=== PATIENT | female | born 1980 ===

== ENCOUNTER 2017-12-16 00:15 | Emergency (ER) | payer OTHER ==
[2017-12-16 00:31] VITALS: RESP 18; TEMP 98.1; BMI 30.2
[2017-12-16] MEDS ORDERED: Sodium Chloride 0.9% 1,000 ML IV STA (00:51)
--- NOTE | 2017-12-16 00:57 | ED PDOC ---
Arrival/HPI <Josh Vaca - Last Filed: 12/16/17 05:36> - General Historian: Patient - History of Present Illness Time/Duration: Other (48 hours) Symptom Onset: Gradual Symptom Course: Worsening Quality: Pressure, Cramping Severity Level: 7 Activities at Onset: Rest Context: Home <Wayne Crandall - Last Filed: 12/16/17 05:44> - General Chief Complaint: Female Genitourinary Time Seen by Provider: 12/16/17 00:24 - History of Present Illness Narrative History of Present Illness (Text): 12/16/17 00:54 CC: Pelvic Pain HPI: Ms. Salgado is a 37 year old female with a PMHx of endometriosis, hysterectomy, anemia who presents with a 2 day history of pelvic pain. Patient describes pressure on cervix that radiates up to umbilicus and to lower back as well. Patient describes the pain as crampy with sharp radiation and rates the pain as 8/10. Patient reports that despite her hysterectomy and no period for two years, patient noticed light spotting on her underwear a few days ago. Patient did report unprotected sexual activity a few days ago with no dysparuenia. Patient reports increased frequency of urination but denies hematuria, dysuria and hesitancy. Patient reports abdominal bloating and a rigid stomach. Patient denies fevers, chills, headaches, chest pain, shortness of breath, dizziness, sick contacts and changes to bowel habits. (Wayne Crandall) Past Medical History - Provider Review Nursing Documentation Reviewed: Yes - Travel History Have you recently traveled outside [place] w/in the past 3 mons?: No - Infectious Disease Hx of Infectious Diseases: None - Genitourinary/Gynecological Other/Comment: Endometriosis. partial Hysterectomy - Psychiatric Hx Substance Use: No - Surgical History Hx Hysterectomy: Yes - Anesthesia Hx Anesthesia: Yes Hx Anesthesia Reactions: No Hx Malignant Hyperthermia: No <Wayne Crandall - Last Filed: 12/16/17 05:44> Family/Social History - Physician Review Nursing Documentation Reviewed: Yes Family/Social History: Unknown Family HX Smoking Status: Never Smoked Hx Alcohol Use: No Hx Substance Use: No <Wayne Crandall - Last Filed: 12/16/17 05:44> Allergies/Home Meds <Josh Vaca - Last Filed: 12/16/17 05:36> <Wayne Crandall - Last Filed: 12/16/17 05:44> Allergies/Adverse Reactions: Allergies metronidazole [From Metrogel] Allergy (Verified 12/16/17 00:37) RASH shellfish derived Adverse Reaction (Verified 12/16/17 00:36) ANAPHYLAXIS Review of Systems - Physician Review All systems were reviewed & negative as marked: Yes - Review of Systems Constitutional: Normal. absent: Fatigue, Weight Change, Fevers, Night Sweats Eyes: Normal ENT: Normal Respiratory: Normal Cardiovascular: Normal Gastrointestinal: Abdominal Pain Genitourinary Female: Frequency, Vaginal Bleeding (light). absent: Hematuria, Urine Output Changes Musculoskeletal: Back Pain (radiation from pelvis around to midline sacrum ) Skin: Normal Neurological: absent: Headache <Wayne Crandall - Last Filed: 12/16/17 05:44> Physical Exam Vital Signs Reviewed: Yes Temperature: Afebrile Blood Pressure: Normal Pulse: Regular Respiratory Rate: Normal Appearance: Positive for: Well-Appearing, Non-Toxic, Comfortable Pain Distress: Mild Mental Status: Positive for: Alert and Oriented X 3 - Systems Exam Head: Present: Atraumatic, Normocephalic Pupils: Present: PERRL Extroacular Muscles: Present: EOMI Conjunctiva: Present: Normal Mouth: Present: Moist Mucous Membranes Neck: Present: Normal Range of Motion Respiratory/Chest: Present: Clear to Auscultation, Good Air Exchange. No: Respiratory Distress, Accessory Muscle Use, Wheezes, Decreased Breath Sounds Cardiovascular: Present: Regular Rate and Rhythm, Normal S1, S2. No: Murmurs Abdomen: Present: Tenderness, Normal Bowel Sounds (RLQ), Scars (healed, inferior to umbilicus for endometrial mass removal). No: Distention, Peritoneal Signs, Rebound, Guarding, Rovsing's Sign Present Genitourinary/Pelvic Exam: Present: Normal External Genitalia, Vaginal Discharge , Cervical os Closed, Other (scant white material, no pain on exam). No: Vaginal Bleeding, Vaginal Lesions, Adenexal Tenderness, Adenexal Mass, Cervical Motion Tendernes, Odor Back: Present: Midline Tenderness. No: CVA Tenderness, Paraspinal Tenderness Upper Extremity: Present: Normal Inspection Lower Extremity: Present: Normal Inspection. No: CALF TENDERNESS, NORMAL PULSES Neurological: Present: GCS=15, CN II-XII Intact, Speech Normal Skin: Present: Warm, Dry, Normal Color. No: Rashes Psychiatric: Present: Alert, Oriented x 3, Normal Insight, Normal Concentration <Wayne Crandall - Last Filed: 12/16/17 05:44> Vital Signs Temp Pulse Resp BP Pulse Ox 12/16/17 00:31 98.1 F 75 18 131/87 98 Medical Decision Making <Josh Vaca - Last Filed: 12/16/17 05:36> <Wayne Crandall - Last Filed: 12/16/17 05:44> ED Course and Treatment: 12/16/17 01:36 Patient Seen with Resident: In agreement with resident note which contains more details about the patient. Patient seen and evaluated with resident. Came up with plan and treatment together.. (Josh Vaca) 12/16/17 00:39 Impression: 37 year old female with PMHx of endometriosis with growth removal, hysterectomy , gastric sleeve and anemia who presents with pelvic pain that radiated to umbilicus and to back. Plan: Test POC CBC CMP NS bolus Toradol [address] abd/pel with IV contrast only UA 12/16/17 01:55 Pelvic exam performed with Darnell TIRADO at bedside. Minimal thin white material appreciated. Awaiting CT results. 12/16/17 03:03 EXAM: CT Abdomen and Pelvis Without Intravenous Contrast EXAM DATE/TIME: 12/16/2017 12:50 AM CLINICAL HISTORY: 37 years old, female; Pain; Abdominal pain TECHNIQUE: Axial computed tomography images of the abdomen and pelvis without intravenous contrast. All CT scans at this facility use at least one of these dose optimization techniques: automated exposure control; mA and/or kV adjustment per patient size (includes targeted exams where dose is matched to clinical indication); or iterative reconstruction. COMPARISON: No relevant prior studies available. FINDINGS: Lower thorax: No acute findings. ABDOMEN: Liver: Normal. No mass. Gallbladder and bile ducts: Normal. No calcified stones. No ductal dilation. Pancreas: Normal. No ductal dilation. Spleen: Normal. No splenomegaly. Adrenals: Normal. No mass. Kidneys and ureters: Normal. No hydronephrosis. Stomach and bowel: Normal. No obstruction. No mucosal thickening. Appendix: Visualized portions of appendix appear normal. PELVIS: Bladder: Unremarkable as visualized. Reproductive: Uterus appears within normal limits. Small cysts suspected in bilateral ovaries. Ovoid 5 cm cystic structure in right pelvis-ovary with layering hyperdensity. Suspected bilateral adnexal clips. ABDOMEN and PELVIS: Intraperitoneal space: Mild pelvic free fluid. Bones/joints: No acute fracture. No dislocation. Soft tissues: Ovoid 3 cm fat containing midline abdominal wall subxiphoid hernia. Vasculature: Normal. No abdominal aortic aneurysm. Lymph nodes: Normal. No enlarged lymph nodes. IMPRESSION: 1. Mild pelvic free fluid. 2. Suspected 5 cm right ovarian cyst with layering debris, hemorrhage versus soft tissue. Follow-up recommended. 3. Ovoid 3 cm fat containing midline abdominal wall subxiphoid hernia. 12/16/17 05:33 UA showing many bacteria, high nitrates and ketones, likely due to a UTI. Keflex 500 mg PO given. Discussed necessity follow up with patient with primary care physician for continuing care. Will order Keflex 500 BID PO x 3 days as well as Motrin. Patient hemodynamically stable and in agreement to be discharged. Questions regarding diagnoses answered to patient satisfaction. (Wayne Crandall) - Lab Interpretations Lab Results: 12/16/17 01:12 12/16/17 01:12 Lab Results 12/16/17 01:12: Sodium 139, Potassium 3.8, Chloride 103, Carbon Dioxide 27, Anion Gap 13, BUN 23 H, Creatinine 0.9, Est GFR ( Amer) > 60, Est GFR ( Non-Af Amer) > 60, Random Glucose 92, Calcium 9.3, Total Bilirubin 0.4, AST 29, ALT 16, Alkaline Phosphatase 65, Total Protein 7.7, Albumin 4.5, Globulin 3.2, Albumin/Globulin Ratio 1.4, Lipase 155 12/16/17 01:12: Urine Color Yellow, Urine Appearance Sl cloudy, Urine pH 6.5, Ur Specific Hermin[place] >= 1.030, Urine Protein Trace H, Urine Glucose (UA) Negative , Urine Ketones 15 H, Urine Blood Negative, Urine Nitrate Positive H, Urine Bilirubin Negative, Urine Urobilinogen 1.0 H, Ur Leukocyte Esterase Negative, Urine RBC 0 - 2, Urine WBC 5 - 10, Ur Epithelial Cells 6 - 8, Urine Bacteria Many, Urine Other Mucus 12/16/17 01:12: WBC 6.2, RBC 3.95, Hgb 11.7 L, Hct 35.4 L, MCV 89.6, MCH 29.6, MCHC 33.1, RDW 12.9, Plt Count 297, MPV 8.9, Gran % 50.3, Lymph % (Auto) 42.7 H , [place] % (Auto) 5.4, Eos % (Auto) 1.6, Baso % (Auto) 0.0, Gran # 3.10, Lymph # ( Auto) 2.6, [place] # (Auto) 0.3, Eos # (Auto) 0.1, Baso # (Auto) 0.00 - RAD Interpretation Radiology Orders: 12/16/17 00:50 ABD & PELVIS W/O PO OR IV CONT [CT] Stat - Medication Orders Current Medication Orders: Discontinued Medications Cephalexin Monohydrate (Keflex) 500 mg PO STAT STA PRN Reason: Protocol Stop: 12/16/17 05:33 Sodium Chloride (Sodium Chloride 0.9%) 1,000 mls @ 999 mls/hr IV .Q1H1M STA Stop: 12/16/17 01:51 Last Admin: 12/16/17 01:10 Dose: 999 mls/hr eMAR Start Stop Document 12/16/17 01:10 AD (Rec: 12/16/17 01:20 [id number] Intravenous Solution Start Date 12/16/17 Start Time 01:20 Ketorolac Tromethamine (Toradol) 30 mg IVP STAT STA Stop: 12/16/17 00:52 Last Admin: 12/16/17 01:10 Dose: 30 mg MAR Pain Assessment Document 12/16/17 01:10 AD (Rec: 12/16/17 01:20 AD [id number] Pain Reassessment Is this a pain reassessment? 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 YASH has examined the patient and agrees with the treatment plan. <Josh Vaca - Last Filed: 12/16/17 05:36> Disposition/Present on Arrival <Josh Vaca - Last Filed: 12/16/17 05:36> - Present on Arrival Any Indicators Present on Arrival: No History of DVT/PE: No History of Uncontrolled Diabetes: No Urinary Catheter: No History of Decub. Ulcer: No History Surgical Site Infection Following: None - Disposition Have Diagnosis and Disposition been Completed?: Yes Disposition Time: 05:00 Patient Plan: Discharge <Wayne Crandall - Last Filed: 12/16/17 05:44> - Disposition Diagnosis: Ovarian cyst, Endometriosis, UTI (urinary tract infection) Disposition: HOME/ ROUTINE Patient Problems: Current Active Problems Problem Status Onset Endometriosis Acute Ovarian cyst Acute UTI (urinary tract infection) Acute Condition: IMPROVED Discharge Instructions (ExitCare): Asymptomatic Bacteriuria, Urinary Tract Infection, Adult (DC), Ovarian Cyst (DC), Endometriosis (DC) Print Language: ALBANIAN Additional Instructions: Please follow up with your primary doctor within one week for care regarding your UTI, endometriosis and pain control. Return to nearest emergency department if symptoms worsen or reoccur. Cephalexin for a urinary tract infection and Ibuprofen for the pain have been prescribed. Please consume as prescribed on directions. KIANNA SALGADO, thank you for letting us take care of you today. Your provider was Josh Vaca MD and you were treated for ABD PAIN. The emergency medical care you received today was directed at your acute symptoms. If you were prescribed any medication, please fill it and take as directed. It may take several days for your symptoms to resolve. Return to the Emergency Department if your symptoms worsen, do not improve, or if you have any other problems. Please contact your doctor or call one of the physicians/clinics you have been referred to that are listed on the Patient Visit Information form that is included in your discharge packet. Bring any paperwork you were given at discharge with you along with any medications you are taking to your follow up visit. Our treatment cannot replace ongoing medical care by a primary care provider outside of the emergency department. Thank you for allowing the [facility] team to be part of your care today. If you had an X-Ray or CT scan: A Radiologist will review the ED reading if any change in treatment is needed we will contact you. If you had a blood, urine, or wound culture: It will take several days for the results, if any change in treatment is needed we will contact you. If you had an STI test: It will take 48 hours for the results. Please call after 1 week if you have not heard back. Prescriptions: Cephalexin [cephalexin] 500 mg PO BID #6 cap Ibuprofen [Motrin] 600 mg PO TID PRN #12 tab PRN Reason: Pain, Moderate (4-7) Referrals: FAMILY PROVIDER,NO [Primary Care Provider] - Follow up with primary Forms: [employer] (Amharic)
[2017-12-16 01:25] LABS: EOS # 0.1 (0.0-0.7); EOS % 1.6 % (1.5-5.0); GRAN # 3.1 (1.4-6.5); GRAN % 50.3 % (50.0-68.0); HEMOGLOBIN 11.7 g/dL (12.0-16.0); LYMPH # 2.6 (1.2-3.4); LYMPH % 42.7 % (22.0-35.0); MEAN CELL VOLUME 89.6 fl (80.0-105.0); MEAN CORPUSCULAR HEMOGLOBIN 29.6 pg (25.0-35.0); MEAN CORPUSCULAR HGB CONC 33.1 g/dl (31.0-37.0); MEAN PLATELET VOLUME 8.9 fl (7.0-11.0); MONO # 0.3 (0.1-0.6); MONO % 5.4 % (1.0-6.0); PH,URINE 6.5 (4.7-8.0); RBC 3.95 10^6/uL (3.5-6.1); RED CELL DISTRIBUTION WIDTH 12.9 % (11.5-14.5); URINE BILIRUBIN NEGATIVE (NEGATIVE); URINE BLOOD NEGATIVE (NEGATIVE); URINE GLUCOSE (UA) NEGATIVE (NEGATIVE); URINE LEUKOCYTE ESTERASE NEGATIVE Leu/uL (NEGATIVE); URINE PROTEIN TRACE mg/dL (<30 mg/dL); WHITE BLOOD COUNT 6.2 10^3/ul (4.5-11.0)
[2017-12-16 01:28] LABS: URINE APPEARANCE SL CLOUDY (CLEAR); URINE COLOR YELLOW (YELLOW)
[2017-12-16 01:45] LABS: URINE RBC 0 - 2 /hpf (0-2)
[2017-12-16 01:46] LABS: ALB/GLOB RATIO 1.4 (1.1-1.8); ALBUMIN 4.5 g/dL (3.0-4.8); ALT/SGPT 16 U/L (7-56); AST/SGOT 29 U/L (14-36); BLOOD UREA NITROGEN 23 mg/dL (7-21); CALCIUM 9.3 mg/dL (8.4-10.5); GFR NON-AFRICAN AMERICAN > 60; LIPASE 155 U/L (23-300); URINE BACTERIA MANY (NEG)
[2017-12-16] MEDS ORDERED: Iohexol 350 MG/100 ML VIAL ONE (02:02)
[2017-12-16 06:57] VITALS: BP 129/78; PULSE 78; O2SAT 100
--- NOTE | 2017-12-16 10:13 | CT ---
Date of service: 12/16/2017 PROCEDURE: CT Abdomen and Pelvis without intravenous contrast HISTORY: abdominal pain COMPARISON: None. TECHNIQUE: Without contrast. Contrast dose: Radiation dose: Total exam DLP = 803 mGy-cm. This CT exam was performed using one or more of the following dose reduction techniques: Automated exposure control, adjustment of the mA and/or kV according to patient size, and/or use of iterative reconstruction technique. FINDINGS: LOWER THORAX: Unremarkable. LIVER: Unremarkable. No gross lesion or ductal dilatation. GALLBLADDER AND BILE DUCTS: Unremarkable. PANCREAS: Unremarkable. No gross lesion or ductal dilatation. SPLEEN: Unremarkable. ADRENALS: Unremarkable. No mass. KIDNEYS AND URETERS: Unremarkable. No hydronephrosis. No solid mass. VASCULATURE: Unremarkable. No aortic aneurysm. BOWEL: Unremarkable. No obstruction. No gross mural thickening. APPENDIX: Unremarkable. Normal appendix. PERITONEUM: Minimal free fluid in pelvis. There is a small fat containing ventral hernia in the midline LYMPH NODES: Unremarkable. No enlarged lymph nodes. BLADDER: Unremarkable. REPRODUCTIVE: The right ovary measures 4 x 5 cm. There is a layer of debris as well as a calcification. This could represent a dermoid although there is no obvious fatty element. BONES: No acute fracture. OTHER FINDINGS: The report concurs with the preliminary [facility] report IMPRESSION: The right ovary measures 4 x 5 cm. There is a layer of debris as well as a calcification. This could represent a dermoid although there is no obvious fatty element. Minimal free fluid in the pelvis Small fact containing ventral hernia
== END 2017-12-16 06:00 | disposition home or self-care (01) ==
LOC: ED 00:15
DX: N80.9 Endometriosis, unspecified (principal); N39.0 Urinary tract infection, site not specified; N83.209 Unspecified ovarian cyst, unspecified side; D64.9 Anemia, unspecified; Z90.710 Acquired absence of both cervix and uterus
CPT/HCPCS: 74176; 80053; 81001; 83690; 85025; 87086; 87181; 96374; 99284; J1885; J7030